=== PATIENT | male | born 1995 | race Hispanic/Latino ===

== ENCOUNTER 2023-11-30 12:33 | Emergency (ER) | payer SELFPAY ==
[2023-11-30 12:34] VITALS: BP 136/82
[2023-11-30 14:46] VITALS: BP 131/55
[2023-11-30 14:58] LABS: % Basophils 0.4 % (0-2); % Eosinophils 2.1 % (0-6); % Immature Granulocytes 0.2 % (0-0.5); % Lymphocytes 39.8 % (20.5-51.1); % Monocytes 9.3 % (1.7-9.3); % Neutrophils 48.2 % (42.2-75.2); Absolute Eosinophils 0.1 10^3/uL (0-0.7); Absolute Lymphocytes 1.9 10^3/uL (1.2-3.4); Absolute Monocytes 0.4 10^3/uL (0.1-0.6); Absolute Neutrophils 2.3 10^3/uL (1.4-6.5); Hematocrit 38.1 % (39.0-52.0); Hemoglobin 13.7 g/dL (13.0-18.0); Mean Corpuscular Hgb 30.7 pg (27.0-31.0); Mean Corpuscular Volume 85.4 fL (80.0-94.0); Mean Platelet Volume 10.7 fL (7.4-10.4); Nucleated Red Blood Cells % 0 % (-); Platelet Count 239 10^3/uL (130-400); Red Blood Cell Count 4.46 10^6/uL (4.70-6.10); Red Cell Dist. Width 12.5 % (11.5-14.5); White Blood Cell Count 4.7 10^3/uL (4.8-10.8)
[2023-11-30 15:00] VITALS: BP 129/54
[2023-11-30 15:11] LABS: ALT (SGPT) 23 U/L (0-50); AST (SGOT) 26 U/L (17-59); Albumin 4.6 g/dl (3.5-5.0); Alkaline Phosphatase 75 U/L (38-126); Blood Urea Nitrogen 16 mg/dl (9-20); Calcium 9.8 mg/dl (8.4-10.2); Carbon Dioxide 26 mmol/L (22-30); Chloride 103 mmol/L (98-107); Glucose 95 mg/dl (70-99); Sodium 137 mmol/L (135-145); Total Bilirubin 1.1 mg/dl (0.2-1.3); Total Protein 7.2 g/dl (6.3-8.2); eGFR > 60.00
[2023-11-30 16:00] VITALS: BP 123/57
--- NOTE | 2023-11-30 16:19 | ED.GENMED ---
History of Present Illness
General
Chief Complaint: Dizziness
Source: patient and spouse
Exam Limitations: none
Time Seen by Provider: 11/30/23 14:05
Nursing documentation reviewed up to this point in time: agreed with
History of Present Illness
History of Present Illness:
28-year-old male with no reported chronic medical issues presents to the emergency room for evaluation of headaches, dizziness and left-sided numbness/weakness. Patient reports symptoms have been intermittent over the past week. He reports 2-3
episodes. Most recent episode was last night. He says that the episodes will last for hours at a time�reports that last night symptoms lasted for 6 hours. He says that he gets severe frontal headache. He says that he occasionally will have
throbbing sensation in his years. He says that he develops left facial numbness, left arm and leg numbness, left arm and leg weakness. He says that symptoms from last night have resolved except for some residual paresthesias in the left arm and
leg but given the severity of these episodes and that he has never had similar symptoms in the past he came to the emergency room to be assessed. He denies any associated vision loss. He denies any speech issues. He denies any symptoms on the
right side. He denies any trauma. He denies any neck pain, back pain. Denies any chest or abdominal pain. He denies any other complaints.
Past History
Past History
ED Past Medical History: None
ED Past Surgical History: None
Social History
Tobacco: Smoker
Alcohol: Occasional
Personal: Single
Living: with family
Family History
Family History: Negative Diabetes, Hypertension or CAD
Review of Systems
Review of Systems
All Other Systems: ROS reviewed and negative except as documented in HPI and ROS
Constitutional: Denies fever or chills
Respiratory: Denies cough or trouble breathing
Cardiac: Denies chest pain, palpitations or syncope
ABD/GI: Denies abdominal pain
: Denies flank pain
Musculoskeletal: Denies neck pain or back pain
Neurological: Reports dizzy, headache, weakness and numbness
Phy Exam
Physical Exam
Physical Exam:
General: Awake, alert, oriented x3; no acute distress
Head: Normocephalic, atraumatic
Eyes: Conjunctiva normal, EOMI, pupils equal round and reactive to light bilaterally
Throat: Airway intact, handling secretions
Neck: Trachea midline, supple without meningismus
Lungs: Clear to auscultation bilaterally, no wheezing, rales, rhonchi
Heart: Regular rate and rhythm, no murmurs, gallops, or rubs
Abd: Soft, non distended, nontender
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
proximally bilateral upper extremities, strength is intact proximally and distally bilateral lower extremities; he reports subjective diminished sensation left arm and leg when compared to the right
Skin: no rash
Extremities: No edema in extremities, equal pulses in all extremities
Scores
NIH Stroke Score
Level of Consciousness: 0 - Alert
LOC Questions: 0-Answers both correctly
LOC Commands: 0-Performs both correctly
Best Horizontal Gaze: 0-Normal
Visual Davis: 0=Normal, no visual loss
Facial Palsy: 0=Normal, symmetrical
Motor - Right Arm: 0=No drift 10 seconds
Motor - Left Arm: 0=No drift 10 seconds
Motor - Right Le-No drift 5 seconds
Motor - Left Le-No drift 5 seconds
Limb Ataxia: 0-Absent
Sensation: 1-Mild loss
Best Language: 0-No aphasia
Dysarthria: 0-Normal
Extinction and Inattention: 0-No abnormality
Total Score:: 1
Thrombolytic Contraindication
Inclusion and Exclusion criteria reviewed: Yes
Reasons for NON-Tx with Thrombolytics ABSOLUTE Exclusions: Greater than 4.5 hrs from onset of sxs
Heart Failure Risk
Heart Failure Risk Score: Not Applicable
Heart Score for Chest Pain Patients
STEMI patient?: Not applicable
Withdrawal Assessment of Alcohol
Withdrawal Assessment Completed?: Not applicable
Course
Orders/Labs/Results
Orders:
Orders
11/30/23 14:20
CMP [Comprehensive Metabolic Panel] Urgent
Complete Blood Count/With Diff Urgent
11/30/23 14:48
Electrocardiogram (*1) Urgent
Reason for Study: Vertigo / Dizzy
EKG- Treatment ONCE
11/30/23 16:11
CT Head & Neck Angio W/wo IV Urgent
Comment:
Reason For Exam: headache associated with left weakness/numbness
NEUROLOGY CONSULT Urgent
Consulting Provider: Shree Tompkins
Was physician already notified: Yes
11/30/23 17:45
Topiramate [Topamax] 25 mg PO NOW STA
Abnormal Lab Results
11/30/23
14:20
WBC 4.7 L 10^3/uL
(4.8-10.8)
RBC 4.46 L 10^6/uL
(4.70-6.10)
Hct 38.1 L %
(39.0-52.0)
MPV 10.7 H fL
(7.4-10.4)
11/30/23 14:20
11/30/23 14:20
Vital Signs
Initial and Last Documented VS:
Initial Vital Signs
Temp Pulse Resp BP Pulse Ox
36.7 C 70 16 136/82 99
11/30/23 12:34 11/30/23 12:34 11/30/23 12:34 11/30/23 12:34 11/30/23 12:34
Last Documented Vital Signs
Temp Pulse Resp BP Pulse Ox
36.7 C 66 23 123/57 100
11/30/23 12:34 11/30/23 16:45 11/30/23 16:45 11/30/23 16:00 11/30/23 14:46
MDM/Problems Addressed
Differential Diagnosis Includes:
Stroke/TIA, brain mass, brain hemorrhage, aneurysm, dissection, complex migraine, electrolyte derangement
MDM/Problems Addressed:
28-year-old male presents for evaluation of intermittent headaches associate with left weakness and numbness�symptoms have been intermittent for the past week. Her prolonged episode last night lasting 6 hours. Has some residual paresthesias in the
left arm and leg but no other residual symptoms. Vital signs are normal. Physical exam as above. Stroke low on the differential and even in case of stroke he would be outside the window for tPA/TNK�for this reason no stroke alert was called.
Nevertheless we will send for a CTA of the head and neck. Will check basic labs. Check an EKG. Case discussed with neurology for assessment.
Labs reviewed: CBC and CMP unremarkable. Neurology evaluated patient�neurologic exam normalized, suspect likely complex migraine. Awaiting radiology report of CT angio but per their review no acute abnormalities. Recommending discharge on Topamax
25 mg daily and patient can follow-up in the office. Continue to monitor pending CT read.
CT read reviewed: No acute pathology. Patient remains awake and alert, feeling well. Vitals stable. Will discharge on Topamax per neurology recommendation. Spoke with patient about plan and return precautions. He feels comfortable with this.
All questions answered.
*Radiology
Radiology exam reviewed: radiology read reviewed
*Pulse Oximetry
Patient hypoxic: no
*EKG
Interpreted by ED Provider?: Yes
Heart Rate: 52
Rate: bradycardiac
Rhythm: sinus
Macon: normal axis
Interval: normal interval
QRS Pattern: normal QRS
Ischemia: no ischemia
*Critical Care Note
Total Time (30-74mins, 75-104mins- exclusive of procedures): Not Applicable
Data Reviewed
Source: patient and spouse
Patient Management
Discussion with other providers: Manager [employer] (Discussed with neurology)
ED Attending Note
-
Portions of this chart may have been created with voice recognition software.� Occasional wrong word or��sound alike� substitutions may have occurred due to the inherent limitations of voice recognition software.
Discharge Plan
Departure
Patient Disposition: Home (Routine Discharge)
Date of Disposition: 11/30/23
Time of Disposition: 17:53
Patient with high blood pressure during this ER visit?: No
Discharge Problem:
Migraine
Instructions: Migraine in adults
Prescriptions:
New
topiramate [Topamax] 25 mg tablet
25 mg PO DAILY Qty: 30 0RF
No Action
ibuprofen 200 MG tablet
400 mg PO Q6HPRN PRN (Reason: pain)
sulfamethoxazole-trimethoprim 1 TABLET tablet
1 tab PO BID 13 Days Qty: 25 0RF
amoxicillin-pot clavulanate 1 TABLET tablet
1 tab PO Q12 13 Days Qty: 25 0RF
prednisone 10 MG tablets,dose pack
10 mg PO DAILY 6 Days Qty: 12 0RF
Rx Instructions:
Take 30mg (3tabs) for 2 days then 20mg (2 tabs) for 2 days then 10mg (1 tab) for 2 days then stop
Referrals:
Shree Tompkins MD [Active] - Call in 1-3 days for appt
NONE,* [Family Provider] -
Activity Restrictions/Additional Instructions:
Thank you for visiting the Emergency Department at [facility].
1. Please schedule a follow up appointment as directed. Call first thing tomorrow morning to make an appointment.
2. If indicated, please take your medications as instructed and indicated on discharge paperwork.
3. If any of your symptoms do not improve, or persist, or become more severe within 6-12 hours, please return to the emergency department for further care.
4. Please return to the emergency department if you develop a headache, neck pain/stiffness, fever greater than 100.4F, chest pain, shortness of breath, persistent nausea, vomiting, slurred speech, difficulty walking, numbness/tingling, weakness,
signs of infection or any other symptoms that are worrisome to you.
Please call [phone] if you have any questions.
Interventions
Interventions:
*Risk Screen - Suicide Last Done: 11/30/23 16:08
*General Assessment Last Done: 11/30/23 12:34
*Neglect/Abuse Screening Last Done: 11/30/23 16:08
*ED COVID-19 Vaccine History Last Done: 11/30/23 12:34
ED- Neurological Assessment Last Done: 11/30/23 15:01
ED- Cardiac Assessment Last Done: 11/30/23 15:00
ED Swallowing Screen Last Done: 11/30/23 15:59
Discharge Date and Time
Print Language: ITALIAN
== END 2023-11-30 18:34 | disposition home or self-care (01) ==
LOC: EMR 12:33
PROVIDERS: CONSULT PHYSICIAN Psychiatry & Neurology Neurology; EMERGENCY PHYSICIAN Emergency Medicine
DX: G43.909 Migraine, unspecified, not intractable, without status migrainosus (principal); F17.200 Nicotine dependence, unspecified, uncomplicated
CPT/HCPCS: 99284; 70496; 70498; 80053; 85025; 93005; Q9967